=== PATIENT | female | born 1935 | race Caucasian/White ===

== ENCOUNTER 2017-07-24 16:10 | Inpatient (IN) | payer MEDICARE, OTHER ==
[2017-07-24 16:39] LABS: CHLORIDE,CL 100 mEq/L (98-106); SODIUM,NA 138 mEq/L (136-145)
[2017-07-24] MEDS ORDERED: Denosumab 60 MG/1 ML Syringe SUBCUT SCH (18:06)
--- NOTE | 2017-07-24 18:11 | EDM.PDOC ---
ED HPI GENERAL MEDICAL PROBLEM - General Chief Complaint: General Stated Complaint: fall Time Seen by Provider: 07/24/17 16:26 Source of Information: Reports: Patient, EMS Notes Reviewed History Limitations: Reports: Altered Mental Status - History of Present Illness INITIAL COMMENTS - FREE TEXT/NARRATIVE: Lydia is a 81 yo female who presents to the ER via [facility] after being found in her bathroom on the floor by her neighbors. She suffers from moderate to severe dementia and doesn't recall falling. Neighbors noticed today that she had groceries outside and thought it was odd and decided to go in her home and check on her. They found her lying on the floor. Per EMS, who spoke to neighbors , states she appeared to be her normal self with her history of dementia. They states she was lying on the bathroom floor naked, but the shower had not been on and she was incontinent with stool and urine all over the floor. EMS state she knew her date of , where she was at, full name; however, couldn't remember why she fell or was on the floor. She admitted to falling yesterday as well by her entrance d/t some snow and icy conditions. She denies any discomfort presently. States she is feeling fine. Doesn't recall her last meal but told EMS she had cereal this morning. Neighbors state she must have went sometime today to get groceries as they didn't notice them earlier by her door. Onset: Unknown/Unsure - Related Data Allergies Allergy/AdvReac Type Severity Reaction Status Date / Time No Known Allergies Allergy Verified 07/24/17 16:09 Home Meds: Home Meds Lisinopril/Hydrochlorothiazide [Lisinopril-Hctz 20-12.5 mg Tab] 1 tab PO DAILY 10/21/14 [History] Metoprolol Succinate [Toprol XL] 25 mg PO DAILY 10/21/14 [History] Simvastatin [Zocor] 80 mg PO DAILY 10/21/14 [History] Aspirin [Low Dose Aspirin EC] 81 mg PO DAILY 07/24/17 [History] Calcium Carbonate [Calcium] 1 tab PO DAILY 07/24/17 [History] Denosumab [Prolia] 60 mg SUBCUT Q180D 07/24/17 [History] Potassium Chloride 10 meq PO DAILY 07/24/17 [History] Past Medical History Cardiovascular History: Reports: High Cholesterol, Hypertension Musculoskeletal History: Reports: Arthritis, Osteoporosis Psychiatric History: Reports: Dementia - Past Surgical History HEENT Surgical History: Reports: Cataract Surgery Social & Family History - Tobacco Use Smoking Status *Q: Never Smoker - Recreational Drug Use Recreational Drug Use: No ED ROS GENERAL - Review of Systems Review Of Systems: See Below Constitutional: Reports: Weakness. Denies: Fever, Chills, Decreased Appetite HEENT: Reports: No Symptoms Respiratory: Reports: No Symptoms. Denies: Shortness of Breath, Cough Cardiovascular: Reports: No Symptoms, Blood Pressure Problem, Syncope. Denies: Chest Pain, Edema, Palpitations Endocrine: Reports: No Symptoms GI/Abdominal: Reports: Stool Incontinence : Reports: No Symptoms. Denies: Dysuria, Frequency, Hematuria, Incontinence Musculoskeletal: Reports: No Symptoms Skin: Reports: No Symptoms Neurological: Reports: Dizziness (chronic), Syncope, Weakness Psychiatric: Reports: No Symptoms ED EXAM, GENERAL - Physical Exam Exam: See Below Exam Limited By: Altered Mental Status General Appearance: Alert, No Apparent Distress Eye Exam: Bilateral Eye: EOMI, Normal Inspection, PERRL Ears: Normal External Exam, Hearing Grossly Normal, Normal TMs Nose: Normal Inspection, No Blood Throat/Mouth: Normal Inspection, Normal Lips, Normal Teeth, Normal Gums, Normal Oropharynx, No Airway Compromise Head: Atraumatic, Normocephalic Neck: Normal Inspection, Supple Respiratory/Chest: No Respiratory Distress, Lungs Clear, Normal Breath Sounds, No Accessory Muscle Use Cardiovascular: Regular Rate, Rhythm, No Edema, No Murmur GI/Abdominal: Normal Bowel Sounds, Soft, Non-Tender, No Organomegaly Neurological: Alert, Confused, Memory Loss Recent Events. No: Disoriented Psychiatric: Normal Affect, Normal Mood Skin Exam: Warm, Dry, Intact, Normal Color, No Rash. No: Ecchymosis EKG INTERPRETATION EKG Date: 07/24/17 Rhythm: NSR Comparison: NA - No Prior EKG Course - Vital Signs Last Recorded V/S: Last Vital Signs Temp 96.1 F 07/24/17 16:13 Pulse 78 07/24/17 16:13 Resp 20 07/24/17 16:13 BP 173/80 H 07/24/17 16:13 Pulse Ox 98 07/24/17 16:13 - Orders/Labs/Meds Orders: Active Orders 24 hr Category Date Time Status Head wo Cont [CT] Stat Exams 07/24/17 16:22 Ordered UA W/MICROSCOPIC [URIN] Stat Lab 07/24/17 16:22 Ordered Labs: Laboratory Tests 07/24/17 07/24/17 Range/Units 16:32 16:32 WBC 12.1 H (5.0-10.0) 10^3/uL RBC 4.79 (4.00-5.50) 10^6/uL Hgb 15.4 (12.0-16.0) g/dL Hct 44.5 (37.0-47.0) % MCV 92.9 (82.0-94.0) fL MCH 32.2 H (27.0-32.0) pg MCHC 34.6 (33.0-38.0) g/dL RDW Coeff of Danni 13.1 (11.0-15.0) % Plt Count 187 (150-400) 10^3/uL Neut % (Auto) 87.1 H (35-85) % Lymph % (Auto) 5.3 L (10-55) % [place] % (Auto) 7.5 (0-16) % Eos % (Auto) 0 (0-5) % Baso % (Auto) 0.1 (0-3) % Neut # (Auto) 10.55 H (1.80-7.00) 10^3/uL Lymph # (Auto) 0.64 L (1.00-4.80) 10^3/uL [place] # (Auto) 0.91 H (0.00-0.80) 10^3/uL Eos # (Auto) 0.00 (0.00-0.45) 10^3/uL Baso # (Auto) 0.01 10^3/uL Sodium 138 (136-145) mEq/L Potassium 3.3 L (3.5-5.0) mEq/L Chloride 100 (98-106) mEq/L Carbon Dioxide 27 (21-32) mmol/L BUN 13 (7-18) mg/dL Creatinine 0.6 (0.6-1.0) mg/dL Est Cr Clr Drug Dosing 71.17 mL/min Estimated GFR (MDRD) > 60 (>=60) mL/min Glucose 140 H D (75-99) mg/dL Calcium 8.4 (8.4-10.1) mg/dL Creatine Kinase 1415 H (21-215) U/L Troponin I < 0.017 (0.00-0.06) ng/mL C-Reactive Protein 2.8 H (0.2-0.8) mg/dL Departure - Departure Time of Disposition: 17:30 Disposition: Admitted As Inpatient 68 Clinical Impression: Confusion Syncope Qualifiers: Syncope type: unspecified Qualified Code(s): R55 - Syncope and collapse Incontinence Qualifiers: Urinary Incontinence type: unspecified incontinence - Discharge Information - Problem List & Annotations (1) Confusion SNOMED Code(s): 094751701 Code(s): R41.0 - DISORIENTATION, UNSPECIFIED Status: Acute Current Visit : Yes (2) Incontinence SNOMED Code(s): 62185676 Code(s): R32 - UNSPECIFIED URINARY INCONTINENCE Status: Acute Current Visit: Yes Qualifiers: Urinary Incontinence type: unspecified incontinence (3) Syncope SNOMED Code(s): 929031790 Code(s): R55 - SYNCOPE AND COLLAPSE Status: Acute Current Visit: Yes Qualifiers: Syncope type: unspecified Qualified Code(s): R55 - Syncope and collapse - My Orders Last 24 Hours: My Active Orders 07/24/17 16:22 Head wo Cont [CT] Stat UA W/MICROSCOPIC [URIN] Stat - Assessment/Plan Admission H&P: Please use this note as an admission H&P Last 24 Hours: My Active Orders 07/24/17 16:22 Head wo Cont [CT] Stat UA W/MICROSCOPIC [URIN] Stat Plan: Lydia will be directly admitted to Dr. Garcia's services under acute care. Dr. Garcia consulted and agreed with admission. I am concerned of her well being at home alone and we will closely monitor. PT will be ordered for strengthening as well. IV fluids as her CK level was elevated to 1400. Discussed antibiotic therapy with Dr. Garcia secondary to increased confusion, mildly elevated WBC and CRP, incontinence. Will give a dose of Rocephin as we are waiting on urinalysis and culture. Patient has been transferred to the floor and is sitting up eating. Does not appear to be in any distress.
[2017-07-24] MEDS: cefTRIAXone 1 GM Vial IVPUSH SCH (18:55)
[2017-07-24] MEDS: Sodium Chloride 0.9% 1,000 ML IV SCH (18:55)
[2017-07-24] MEDS: Enoxaparin 30 MG/0.3 ML Syringe SUBCUT SCH (20:07)
[2017-07-25] MEDS: Acetaminophen 325 MG Tab PO PRN ×2 (00:13→16:40)
[2017-07-25] MEDS: Sodium Chloride 0.9% 1,000 ML IV SCH ×2 (01:45→11:37)
[2017-07-25 07:56] LABS: CHLORIDE,CL 107 mEq/L (98-106); SODIUM,NA 143 mEq/L (136-145)
[2017-07-25] MEDS: Calcium Carbonate 500 MG Tab.Chew PO SCH (08:09)
[2017-07-25] MEDS: Hydrochlorothiazide 12.5 MG Cap PO SCH (08:10)
[2017-07-25] MEDS: Potassium Chloride 10 MEQ Tab.ER PO SCH (08:10)
[2017-07-25] MEDS: Metoprolol Succinate 25 MG Tab.ER PO SCH (08:10)
[2017-07-25] MEDS: Simvastatin 40 MG Tab PO SCH (08:13)
[2017-07-25] MEDS: Aspirin 81 MG Tab.EC PO SCH (08:13)
[2017-07-25] MEDS: Lisinopril 20 MG Tab PO SCH (08:14)
--- NOTE | 2017-07-25 09:29 | PCM.PN ---
- General Info Date of Service: 07/25/17 Admission Dx/Problem (Free Text): Syncope Functional Status: Reports: Pain Controlled, Tolerating Diet, Ambulating - Review of Systems General: Denies: Fever, Weakness, Fatigue HEENT: Denies: Ear Pain, Sinus Congestion, Sore Throat, Rhinitis Pulmonary: Denies: Shortness of Breath, Cough, Sputum Cardiovascular: Denies: Chest Pain, Edema, Lightheadedness Gastrointestinal: Denies: Abdominal Pain, Decreased Appetite, Nausea, Vomiting Genitourinary: Reports: No Symptoms Musculoskeletal: Reports: Joint Pain (left knee pain) Skin: Reports: Other ("sore left knee") Neurological: Reports: No Symptoms - Patient Data Vitals - Most Recent: Last Vital Signs Temp 98.9 F 07/25/17 07:35 Pulse 70 07/25/17 08:10 Resp 20 07/25/17 07:35 BP 157/73 H 07/25/17 08:14 Pulse Ox 98 07/25/17 07:35 Weight - Most Recent: 157 lb 8 oz I&O - Last 24 Hours: Intake & Output 07/24/17 07/25/17 07/25/17 22:59 06:59 14:59 Intake Total 854 952 Balance 854 952 Lab Results Last 24 Hours: Laboratory Results - last 24 hr 07/24/17 07/25/17 07/25/17 Range/Units 18:35 07:00 07:00 WBC 10.7 H (5.0-10.0) 10^3/uL RBC 4.61 (4.00-5.50) 10^6/uL Hgb 14.9 (12.0-16.0) g/dL Hct 43.6 (37.0-47.0) % MCV 94.6 H (82.0-94.0) fL MCH 32.3 H (27.0-32.0) pg MCHC 34.2 (33.0-38.0) g/dL RDW Coeff of Danni 13.7 (11.0-15.0) % Plt Count 210 (150-400) 10^3/uL Neut % (Auto) 70.6 (35-85) % Lymph % (Auto) 18.0 (10-55) % [place] % (Auto) 10.9 (0-16) % Eos % (Auto) 0.4 (0-5) % Baso % (Auto) 0.1 (0-3) % Neut # (Auto) 7.54 H (1.80-7.00) 10^3/uL Lymph # (Auto) 1.92 (1.00-4.80) 10^3/uL [place] # (Auto) 1.16 H (0.00-0.80) 10^3/uL Eos # (Auto) 0.04 (0.00-0.45) 10^3/uL Baso # (Auto) 0.01 10^3/uL Sodium 143 (136-145) mEq/L Potassium 3.3 L (3.5-5.0) mEq/L Chloride 107 H (98-106) mEq/L Carbon Dioxide 27 (21-32) mmol/L BUN 12 (7-18) mg/dL Creatinine 0.8 (0.6-1.0) mg/dL Est Cr Clr Drug Dosing 53.38 mL/min Estimated GFR (MDRD) > 60 (>=60) mL/min Glucose 113 H (75-99) mg/dL Calcium 7.9 L (8.4-10.1) mg/dL Creatine Kinase 1306 H (21-215) U/L C-Reactive Protein 5.5 H (0.2-0.8) mg/dL Urine Color Yellow (YELLOW) Urine Appearance Clear (CLEAR) Urine pH 7.0 (4.5-8.0) Ur Specific [place] 1.025 H (1.003-1.020) Urine Protein 100 H (NEGATIVE) mg/dL Urine Glucose (UA) Negative (NEGATIVE) mg/dL Urine Ketones 80 H (NEGATIVE) mg/dL Urine Occult Blood Moderate H (NEGATIVE) Urine Nitrite Negative (NEGATIVE) Urine Bilirubin Negative (NEGATIVE) Urine Urobilinogen 0.2 (0.2-1.0) EU/dL Ur Leukocyte Esterase Negative (NEGATIVE) Urine RBC 10-20 H (0-5) /HPF Urine WBC Not seen (0-5) /HPF Ur Squamous Epith Cells Few H (NOT SEEN) /HPF Urine Bacteria Occasional H (NOT SEEN) /HPF Urine Mucus Occasional H (NOT SEEN) /HPF Dony Results Last 24 Hours: Microbiology 07/24/17 18:41 Urine Culture - Preliminary Urine, Voided Med Orders - Current: Current Medications Acetaminophen (Tylenol) 650 mg PO Q4H PRN PRN Reason: Pain (Mild 1-3)/fever Last Admin: 07/25/17 00:13 Dose: 650 mg Aspirin (Halfprin) 81 mg PO DAILY [facility] Last Admin: 07/25/17 08:13 Dose: 81 mg Calcium Carbonate/Glycine (Tums) 500 mg PO DAILY [facility] Last Admin: 07/25/17 08:09 Dose: 500 mg Ceftriaxone Sodium (Rocephin) 1 gm IVPUSH Q24H [facility] Last Admin: 07/24/17 18:55 Dose: 1 gm Enoxaparin Sodium (Lovenox) 30 mg SUBCUT Q24H [facility] Last Admin: 07/24/17 20:07 Dose: 30 mg Hydrochlorothiazide (Hydrochlorothiazide) 12.5 mg PO DAILY [facility] Last Admin: 07/25/17 08:10 Dose: 12.5 mg Sodium Chloride (Normal Saline) 1,000 mls @ 50 mls/hr IV ASDIRECTED [facility] Last Infusion: 07/25/17 09:22 Dose: 50 mls/hr Lisinopril (Prinivil) 20 mg PO DAILY [facility] Last Admin: 07/25/17 08:14 Dose: 20 mg Metoprolol Succinate (Toprol Xl) 25 mg PO DAILY [facility] Last Admin: 07/25/17 08:10 Dose: 25 mg Potassium Chloride (Klor-Con 10) 10 meq PO DAILY [facility] Last Admin: 07/25/17 08:10 Dose: 10 meq Simvastatin (Zocor) 80 mg PO DAILY [facility] Last Admin: 07/25/17 08:13 Dose: 80 mg Discontinued Medications Denosumab (Prolia) 60 mg SUBCUT Q180D [facility] Last Admin: 07/24/17 20:23 Dose: Not Given - Exam General: Alert, Oriented HEENT: Mucous Membr. Moist/[place] Neck: Supple Lungs: Clear to Auscultation, Normal Respiratory Effort Cardiovascular: Regular Rate, Regular Rhythm GI/Abdominal Exam: Normal Bowel Sounds, Soft, Non-Tender Extremities: Normal Range of Motion, Non-Tender, Other (bruising and abrasion noted to left knee, nontender.) Skin: Ecchymosis Wound/Incisions: No Drainage Neurological: No New Focal Deficit - Problem List & Annotations (1) Confusion SNOMED Code(s): 840204228 Code(s): R41.0 - DISORIENTATION, UNSPECIFIED Status: Acute Priority: High Current Visit: Yes (2) Syncope SNOMED Code(s): 330709942 Code(s): R55 - SYNCOPE AND COLLAPSE Status: Acute Priority: High Current Visit: Yes Qualifiers: Syncope type: unspecified Qualified Code(s): R55 - Syncope and collapse - Problem List Review Problem List Initiated/Reviewed/Updated: Yes - My Orders Last 24 Hours: My Active Orders 07/25/17 09:05 Consult to Physical Therapy [PT Evaluation and Treatment] [CONS] Routine - Assessment Assessment:: Syncope - Plan Plan:: Patient denies any complaints this am. No dizziness, chest pain or shortness of breath. She denies muscle pain or discomfort to the left knee. She does not recall the events of yesterday that led to the syncopal episode except was trying to "carry too much in the house". She does not recall lying in the bathroom or what happened regarding that. Was found by friends. She does have issues with short term memory deficit chronically but no recall of the events of yesterday. Does not recall having any abdominal pain, not aware of being incontinent of bowel or bladder. Will reduce IV fluids to 50 ml/hr. PT for ambulation/balance. Social service consult regarding home safety. Discussion held with patient with concerns of this and questionable placement at assisted living. Is worried about leaving her home and the cost related to this. Inappropriate for discharge at this time.
[2017-07-25] MEDS: cefTRIAXone 1 GM Vial IVPUSH SCH (17:32)
[2017-07-25] MEDS: Enoxaparin 30 MG/0.3 ML Syringe SUBCUT SCH (19:31)
[2017-07-26] MEDS: Metoprolol Succinate 25 MG Tab.ER PO SCH (07:59)
[2017-07-26] MEDS: Potassium Chloride 10 MEQ Tab.ER PO SCH (08:00)
[2017-07-26] MEDS: Simvastatin 40 MG Tab PO SCH (08:00)
[2017-07-26] MEDS: Calcium Carbonate 500 MG Tab.Chew PO SCH (08:01)
[2017-07-26] MEDS: Aspirin 81 MG Tab.EC PO SCH (08:01)
[2017-07-26] MEDS: Hydrochlorothiazide 12.5 MG Cap PO SCH (08:01)
[2017-07-26] MEDS: Lisinopril 20 MG Tab PO SCH (08:02)
--- NOTE | 2017-07-26 13:08 | PCM.PN ---
- General Info Date of Service: 07/26/17 Admission Dx/Problem (Free Text): Syncope Functional Status: Reports: Pain Controlled, Tolerating Diet, Ambulating - Review of Systems General: Denies: Fever, Weakness, Fatigue HEENT: Reports: No Symptoms Pulmonary: Reports: No Symptoms Cardiovascular: Reports: No Symptoms Gastrointestinal: Reports: No Symptoms Musculoskeletal: Reports: Joint Pain Neurological: Reports: Confusion, Pre-Existing Deficit - Patient Data Vitals - Most Recent: Last Vital Signs Temp 99.0 F 07/26/17 11:48 Pulse 78 07/26/17 11:48 Resp 20 07/26/17 11:48 BP 142/70 H 07/26/17 11:48 Pulse Ox 98 07/26/17 11:48 Weight - Most Recent: 157 lb 8 oz Dony Results Last 24 Hours: Microbiology 07/24/17 18:41 Urine Culture - Final Urine, Voided Med Orders - Current: Current Medications Acetaminophen (Tylenol) 650 mg PO Q4H PRN PRN Reason: Pain (Mild 1-3)/fever Last Admin: 07/25/17 16:40 Dose: 650 mg Aspirin (Halfprin) 81 mg PO DAILY [facility] Last Admin: 07/26/17 08:01 Dose: 81 mg Calcium Carbonate/Glycine (Tums) 500 mg PO DAILY [facility] Last Admin: 07/26/17 08:01 Dose: 500 mg Ceftriaxone Sodium (Rocephin) 1 gm IVPUSH Q24H [facility] Last Admin: 07/25/17 17:32 Dose: 1 gm Enoxaparin Sodium (Lovenox) 30 mg SUBCUT Q24H [facility] Last Admin: 07/25/17 19:31 Dose: 30 mg Hydrochlorothiazide (Hydrochlorothiazide) 12.5 mg PO DAILY [facility] Last Admin: 07/26/17 08:01 Dose: 12.5 mg Lisinopril (Prinivil) 20 mg PO DAILY [facility] Last Admin: 07/26/17 08:02 Dose: 20 mg Metoprolol Succinate (Toprol Xl) 25 mg PO DAILY [facility] Last Admin: 07/26/17 07:59 Dose: 25 mg Potassium Chloride (Klor-Con 10) 10 meq PO DAILY [facility] Last Admin: 07/26/17 08:00 Dose: 10 meq Simvastatin (Zocor) 80 mg PO DAILY [facility] Last Admin: 07/26/17 08:00 Dose: 80 mg Discontinued Medications Denosumab (Prolia) 60 mg SUBCUT Q180D [facility] Last Admin: 07/24/17 20:23 Dose: Not Given Sodium Chloride (Normal Saline) 1,000 mls @ 50 mls/hr IV ASDIRECTED [facility] Last Admin: 07/25/17 11:37 Dose: 50 mls/hr - Exam General: Alert, Oriented HEENT: Mucous Membr. Moist/[place] Neck: Supple Lungs: Clear to Auscultation, Normal Respiratory Effort Cardiovascular: Regular Rate, Regular Rhythm GI/Abdominal Exam: Normal Bowel Sounds, Soft, Non-Tender Skin: Warm, Dry Psy/Mental Status: Other (reported confusion much worse last evening, had to be redirected multiple times.) - Problem List & Annotations (1) Confusion SNOMED Code(s): 797413185 Code(s): R41.0 - DISORIENTATION, UNSPECIFIED Status: Acute Priority: High Current Visit: Yes (2) Syncope SNOMED Code(s): 764618145 Code(s): R55 - SYNCOPE AND COLLAPSE Status: Acute Priority: High Current Visit: Yes Qualifiers: Syncope type: unspecified Qualified Code(s): R55 - Syncope and collapse - Problem List Review Problem List Initiated/Reviewed/Updated: Yes - My Orders Last 24 Hours: My Active Orders 07/26/17 08:26 Carotid Comp [US] Routine Echo Comp wo Cont [US] Routine - Assessment Assessment:: Syncope - Plan Plan:: Patient denies any complaints this am. No dizziness, chest pain or shortness of breath. She denies muscle pain or discomfort to the left knee. She does not recall the events of yesterday that led to the syncopal episode except was trying to "carry too much in the house". She does not recall lying in the bathroom or what happened regarding that. Was found by friends. She does have issues with short term memory deficit chronically but no recall of the events of yesterday. Does not recall having any abdominal pain, not aware of being incontinent of bowel or bladder. Will reduce IV fluids to 50 ml/hr. PT for ambulation/balance. Social service consult regarding home safety. Discussion held with patient with concerns of this and questionable placement at assisted living. Is worried about leaving her home and the cost related to this. Inappropriate for discharge at this time. 07-26-2017 Patient continues to have no recall of the events of Saturday. She relates she laid outside overnight and got very cold. Was actually found lying in her bathroom with no clothing on, incontinent of both bowel and bladder. Normal body temperature. Patient does have history of dementia, short term memory concerns or poor recall. Concerns voiced with patient about her home safety due to confusion, falls. Will obtain an echocardiogram and carotid ultrasound today due to questionable syncopal episode. director of residential services to contact sister about potential placement due to safety. Possible transfer to swing bed tomorrow until those plans can be finalized.
[2017-07-26] MEDS: cefTRIAXone 1 GM Vial IVPUSH SCH (17:31)
[2017-07-26] MEDS: Enoxaparin 30 MG/0.3 ML Syringe SUBCUT SCH (20:14)
[2017-07-27 07:37] LABS: CHLORIDE,CL 106 mEq/L (98-106); SODIUM,NA 142 mEq/L (136-145)
[2017-07-27] MEDS ORDERED: Tuberculin, PPD 5 Units/0.1 ML 1 ML MDV IDERM ONE (08:00)
[2017-07-27] MEDS: Lisinopril 20 MG Tab PO SCH (08:22)
[2017-07-27] MEDS: Simvastatin 40 MG Tab PO SCH (08:22)
[2017-07-27] MEDS: Calcium Carbonate 500 MG Tab.Chew PO SCH (08:22)
[2017-07-27] MEDS: Hydrochlorothiazide 12.5 MG Cap PO SCH (08:23)
[2017-07-27] MEDS: Potassium Chloride 10 MEQ Tab.ER PO SCH (08:23)
[2017-07-27] MEDS: Aspirin 81 MG Tab.EC PO SCH (08:23)
[2017-07-27] MEDS: Metoprolol Succinate 25 MG Tab.ER PO SCH (08:23)
--- NOTE | 2017-07-27 13:55 | PCM.PN ---
- General Info Date of Service: 07/27/17 Admission Dx/Problem (Free Text): Syncope Subjective Update: Lydia reports she is feeling well this morning. She does not have any complaints at time of rounds. Functional Status: Reports: Pain Controlled, Tolerating Diet, Ambulating, Urinating. Denies: New Symptoms - Patient Data Vitals - Most Recent: Last Vital Signs Temp 97.5 F 07/27/17 07:45 Pulse 68 07/27/17 08:23 Resp 20 07/27/17 07:45 BP 147/83 H 07/27/17 08:23 Pulse Ox 99 07/27/17 07:45 Weight - Most Recent: 157 lb 8 oz Lab Results Last 24 Hours: Laboratory Results - last 24 hr 07/27/17 Range/Units 07:00 Sodium 142 (136-145) mEq/L Potassium 4.3 D (3.5-5.0) mEq/L Chloride 106 (98-106) mEq/L Carbon Dioxide 30 (21-32) mmol/L BUN 12 (7-18) mg/dL Creatinine 0.6 (0.6-1.0) mg/dL Est Cr Clr Drug Dosing 71.17 mL/min Estimated GFR (MDRD) > 60 (>=60) mL/min Glucose 130 H (75-99) mg/dL Calcium 8.6 (8.4-10.1) mg/dL Creatine Kinase 487 H (21-215) U/L C-Reactive Protein 3.0 H (0.2-0.8) mg/dL Dony Results Last 24 Hours: Microbiology 07/24/17 18:41 Urine Culture - Final Urine, Voided Med Orders - Current: Current Medications Acetaminophen (Tylenol) 650 mg PO Q4H PRN PRN Reason: Pain (Mild 1-3)/fever Last Admin: 07/25/17 16:40 Dose: 650 mg Aspirin (Halfprin) 81 mg PO DAILY [facility] Last Admin: 07/27/17 08:23 Dose: 81 mg Calcium Carbonate/Glycine (Tums) 500 mg PO DAILY [facility] Last Admin: 07/27/17 08:22 Dose: 500 mg Ceftriaxone Sodium (Rocephin) 1 gm IVPUSH Q24H [facility] Last Admin: 07/26/17 17:31 Dose: 1 gm Enoxaparin Sodium (Lovenox) 30 mg SUBCUT Q24H [facility] Last Admin: 07/26/17 20:14 Dose: 30 mg Hydrochlorothiazide (Hydrochlorothiazide) 12.5 mg PO DAILY [facility] Last Admin: 07/27/17 08:23 Dose: 12.5 mg Lisinopril (Prinivil) 20 mg PO DAILY [facility] Last Admin: 07/27/17 08:22 Dose: 20 mg Metoprolol Succinate (Toprol Xl) 25 mg PO DAILY [facility] Last Admin: 07/27/17 08:23 Dose: 25 mg Potassium Chloride (Klor-Con 10) 10 meq PO DAILY [facility] Last Admin: 07/27/17 08:23 Dose: 10 meq Simvastatin (Zocor) 80 mg PO DAILY [facility] Last Admin: 07/27/17 08:22 Dose: 80 mg Discontinued Medications Denosumab (Prolia) 60 mg SUBCUT Q180D [facility] Last Admin: 07/24/17 20:23 Dose: Not Given Sodium Chloride (Normal Saline) 1,000 mls @ 50 mls/hr IV ASDIRECTED [facility] Last Admin: 07/25/17 11:37 Dose: 50 mls/hr Tuberculin PPD (Aplisol) 5 unit IDERM ONETIME ONE Stop: 07/27/17 08:01 Last Admin: 07/27/17 08:20 Dose: 5 unit - Exam General: Alert, Other (oriented to person, disoriented to time and situation) HEENT: Pupils Equal, Pupils Reactive, EOMI, Mucous Membr. Moist/[place] Neck: Supple Lungs: Clear to Auscultation, Normal Respiratory Effort Cardiovascular: Regular Rate, Regular Rhythm Neurological: No New Focal Deficit Psy/Mental Status: Alert, Normal Affect, Normal Mood - Problem List & Annotations (1) Dementia SNOMED Code(s): 22973906 Code(s): F03.90 - UNSPECIFIED DEMENTIA WITHOUT BEHAVIORAL DISTURBANCE Status: Chronic Current Visit: Yes Qualifiers: Dementia type: unspecified type Dementia behavioral disturbance: without behavioral disturbance Qualified Code(s): F03.90 - Unspecified dementia without behavioral disturbance (2) Confusion SNOMED Code(s): 104507053 Code(s): R41.0 - DISORIENTATION, UNSPECIFIED Status: Acute Priority: High Current Visit: Yes (3) Syncope SNOMED Code(s): 089284360 Code(s): R55 - SYNCOPE AND COLLAPSE Status: Acute Priority: High Current Visit: Yes Qualifiers: Syncope type: unspecified Qualified Code(s): R55 - Syncope and collapse - Problem List Review Problem List Initiated/Reviewed/Updated: Yes - My Orders Last 24 Hours: My Active Orders 07/28/17 06:00 BASIC METABOLIC PANEL,BMP [CHEM] DAILY C-REACTIVE PROTEIN [CHEM] DAILY CBC WITH AUTO DIFF [HEME] DAILY CREATINE KINASE,CK [CHEM] DAILY 07/29/17 06:00 CBC WITH AUTO DIFF [HEME] DAILY CREATINE KINASE,CK [CHEM] DAILY 07/30/17 06:00 CBC WITH AUTO DIFF [HEME] DAILY - Assessment Assessment:: Syncope - Plan Plan:: Patient denies any complaints this am. No dizziness, chest pain or shortness of breath. She denies muscle pain or discomfort to the left knee. She does not recall the events of yesterday that led to the syncopal episode except was trying to "carry too much in the house". She does not recall lying in the bathroom or what happened regarding that. Was found by friends. She does have issues with short term memory deficit chronically but no recall of the events of yesterday. Does not recall having any abdominal pain, not aware of being incontinent of bowel or bladder. Will reduce IV fluids to 50 ml/hr. PT for ambulation/balance. Social service consult regarding home safety. Discussion held with patient with concerns of this and questionable placement at assisted living. Is worried about leaving her home and the cost related to this. Inappropriate for discharge at this time. 07-26-2017 Patient continues to have no recall of the events of Saturday. She relates she laid outside overnight and got very cold. Was actually found lying in her bathroom with no clothing on, incontinent of both bowel and bladder. Normal body temperature. Patient does have history of dementia, short term memory concerns or poor recall. Concerns voiced with patient about her home safety due to confusion, falls. Will obtain an echocardiogram and carotid ultrasound today due to questionable syncopal episode. director of employer services to contact sister about potential placement due to safety. Possible transfer to swing bed tomorrow until those plans can be finalized. 07-27-2017 Patient continues to be pleasant confused. She is resting comfortably in her chair at time of rounds. Continues to have no recollection of events leading up to admission. Discussed with patient that for her safety she will be going to [facility] on Saturday. She will remain in hospital until then. She continues to raise many safety concerns due to confusion and falls. Echo and carotid US pending.
[2017-07-27] MEDS: cefTRIAXone 1 GM Vial IVPUSH SCH (19:29)
[2017-07-27] MEDS: Enoxaparin 30 MG/0.3 ML Syringe SUBCUT SCH (19:29)
[2017-07-28 07:35] LABS: CHLORIDE,CL 106 mEq/L (98-106); SODIUM,NA 143 mEq/L (136-145)
[2017-07-28] MEDS: Simvastatin 40 MG Tab PO SCH (07:57)
[2017-07-28] MEDS: Calcium Carbonate 500 MG Tab.Chew PO SCH (07:57)
[2017-07-28] MEDS: Hydrochlorothiazide 12.5 MG Cap PO SCH (07:59)
[2017-07-28] MEDS: Lisinopril 20 MG Tab PO SCH (07:59)
[2017-07-28] MEDS: Metoprolol Succinate 25 MG Tab.ER PO SCH (07:59)
[2017-07-28] MEDS: Aspirin 81 MG Tab.EC PO SCH (07:59)
[2017-07-28] MEDS: Potassium Chloride 10 MEQ Tab.ER PO SCH (07:59)
--- NOTE | 2017-07-28 11:33 | PCM.PN ---
- General Info Date of Service: 07/28/17 Admission Dx/Problem (Free Text): Syncope Subjective Update: Lydia reports she is feeling well this morning. She does not have any complaints at time of rounds. Functional Status: Reports: Pain Controlled, Tolerating Diet, Ambulating, Urinating. Denies: New Symptoms - Review of Systems General: Reports: Weakness HEENT: Reports: No Symptoms Pulmonary: Reports: No Symptoms Cardiovascular: Reports: No Symptoms Gastrointestinal: Reports: No Symptoms Genitourinary: Reports: No Symptoms Musculoskeletal: Reports: No Symptoms Skin: Reports: No Symptoms Neurological: Reports: Confusion Psychiatric: Reports: Confusion - Patient Data Vitals - Most Recent: Last Vital Signs Temp 98.4 F 07/28/17 07:45 Pulse 63 07/28/17 07:59 Resp 16 07/28/17 07:45 BP 138/66 07/28/17 07:59 Pulse Ox 98 07/28/17 07:45 Weight - Most Recent: 157 lb 8 oz Lab Results Last 24 Hours: Laboratory Results - last 24 hr 07/28/17 07/28/17 Range/Units 07:05 07:05 WBC 5.4 (5.0-10.0) 10^3/uL RBC 4.15 (4.00-5.50) 10^6/uL Hgb 13.4 (12.0-16.0) g/dL Hct 39.9 (37.0-47.0) % MCV 96.1 H (82.0-94.0) fL MCH 32.3 H (27.0-32.0) pg MCHC 33.6 (33.0-38.0) g/dL RDW Coeff of Danni 13.5 (11.0-15.0) % Plt Count 186 (150-400) 10^3/uL Neut % (Auto) 49.3 (35-85) % Lymph % (Auto) 35.4 (10-55) % [place] % (Auto) 12.7 (0-16) % Eos % (Auto) 2.2 (0-5) % Baso % (Auto) 0.4 (0-3) % Neut # (Auto) 2.64 (1.80-7.00) 10^3/uL Lymph # (Auto) 1.90 (1.00-4.80) 10^3/uL [place] # (Auto) 0.68 (0.00-0.80) 10^3/uL Eos # (Auto) 0.12 (0.00-0.45) 10^3/uL Baso # (Auto) 0.02 10^3/uL Sodium 143 (136-145) mEq/L Potassium 3.9 (3.5-5.0) mEq/L Chloride 106 (98-106) mEq/L Carbon Dioxide 29 (21-32) mmol/L BUN 14 (7-18) mg/dL Creatinine 0.6 (0.6-1.0) mg/dL Est Cr Clr Drug Dosing 71.17 mL/min Estimated GFR (MDRD) > 60 (>=60) mL/min Glucose 116 H (75-99) mg/dL Calcium 8.7 (8.4-10.1) mg/dL Creatine Kinase 302 H (21-215) U/L C-Reactive Protein 3.0 H (0.2-0.8) mg/dL Med Orders - Current: Current Medications Acetaminophen (Tylenol) 650 mg PO Q4H PRN PRN Reason: Pain (Mild 1-3)/fever Last Admin: 07/25/17 16:40 Dose: 650 mg Aspirin (Halfprin) 81 mg PO DAILY [facility] Last Admin: 07/28/17 07:59 Dose: 81 mg Calcium Carbonate/Glycine (Tums) 500 mg PO DAILY [facility] Last Admin: 07/28/17 07:57 Dose: 500 mg Ceftriaxone Sodium (Rocephin) 1 gm IVPUSH Q24H [facility] Last Admin: 07/27/17 19:29 Dose: 1 gm Enoxaparin Sodium (Lovenox) 30 mg SUBCUT Q24H [facility] Last Admin: 07/27/17 19:29 Dose: 30 mg Hydrochlorothiazide (Hydrochlorothiazide) 12.5 mg PO DAILY [facility] Last Admin: 07/28/17 07:59 Dose: 12.5 mg Lisinopril (Prinivil) 20 mg PO DAILY [facility] Last Admin: 07/28/17 07:59 Dose: 20 mg Metoprolol Succinate (Toprol Xl) 25 mg PO DAILY [facility] Last Admin: 07/28/17 07:59 Dose: 25 mg Potassium Chloride (Klor-Con 10) 10 meq PO DAILY [facility] Last Admin: 07/28/17 07:59 Dose: 10 meq Simvastatin (Zocor) 80 mg PO DAILY [facility] Last Admin: 07/28/17 07:57 Dose: 80 mg Discontinued Medications Denosumab (Prolia) 60 mg SUBCUT Q180D [facility] Last Admin: 07/24/17 20:23 Dose: Not Given Sodium Chloride (Normal Saline) 1,000 mls @ 50 mls/hr IV ASDIRECTED [facility] Last Admin: 07/25/17 11:37 Dose: 50 mls/hr Tuberculin PPD (Aplisol) 5 unit IDERM ONETIME ONE Stop: 07/27/17 08:01 Last Admin: 07/27/17 08:20 Dose: 5 unit - Exam General: Alert, No Acute Distress Neck: Supple Lungs: Clear to Auscultation, Normal Respiratory Effort Cardiovascular: Regular Rate, Regular Rhythm GI/Abdominal Exam: Normal Bowel Sounds, Soft, Non-Tender, No Organomegaly, No Distention, No Abnormal Bruit, No Mass, Pelvis Stable Neurological: No New Focal Deficit Psy/Mental Status: Alert, Normal Affect, Normal Mood - Problem List & Annotations (1) Dementia SNOMED Code(s): 47722454 Code(s): F03.90 - UNSPECIFIED DEMENTIA WITHOUT BEHAVIORAL DISTURBANCE Status: Chronic Current Visit: Yes Qualifiers: Dementia type: unspecified type Dementia behavioral disturbance: without behavioral disturbance Qualified Code(s): F03.90 - Unspecified dementia without behavioral disturbance (2) Confusion SNOMED Code(s): 668558593 Code(s): R41.0 - DISORIENTATION, UNSPECIFIED Status: Acute Priority: High Current Visit: Yes (3) Syncope SNOMED Code(s): 343893847 Code(s): R55 - SYNCOPE AND COLLAPSE Status: Acute Priority: High Current Visit: Yes Qualifiers: Syncope type: unspecified Qualified Code(s): R55 - Syncope and collapse - Problem List Review Problem List Initiated/Reviewed/Updated: Yes - My Orders Last 24 Hours: My Active Orders 07/29/17 06:00 CBC WITH AUTO DIFF [HEME] DAILY CREATINE KINASE,CK [CHEM] DAILY 07/30/17 06:00 CBC WITH AUTO DIFF [HEME] DAILY - Assessment Assessment:: Syncope - Plan Plan:: Patient denies any complaints this am. No dizziness, chest pain or shortness of breath. She denies muscle pain or discomfort to the left knee. She does not recall the events of yesterday that led to the syncopal episode except was trying to "carry too much in the house". She does not recall lying in the bathroom or what happened regarding that. Was found by friends. She does have issues with short term memory deficit chronically but no recall of the events of yesterday. Does not recall having any abdominal pain, not aware of being incontinent of bowel or bladder. Will reduce IV fluids to 50 ml/hr. PT for ambulation/balance. Social service consult regarding home safety. Discussion held with patient with concerns of this and questionable placement at assisted living. Is worried about leaving her home and the cost related to this. Inappropriate for discharge at this time. 07-26-2017 Patient continues to have no recall of the events of Saturday. She relates she laid outside overnight and got very cold. Was actually found lying in her bathroom with no clothing on, incontinent of both bowel and bladder. Normal body temperature. Patient does have history of dementia, short term memory concerns or poor recall. Concerns voiced with patient about her home safety due to confusion, falls. Will obtain an echocardiogram and carotid ultrasound today due to questionable syncopal episode. phlebotomy services technician to contact sister about potential placement due to safety. Possible transfer to swing bed tomorrow until those plans can be finalized. 07-27-2017 Patient continues to be pleasant confused. She is resting comfortably in her chair at time of rounds. Continues to have no recollection of events leading up to admission. Discussed with patient that for her safety she will be going to [facility] on Saturday. She will remain in hospital until then. She continues to raise many safety concerns due to confusion and falls. Echo and carotid US pending. 07-28-2017 Patient remains pleasantly confused. Resting comfortably in chair. Has been up ambulating with nursing staff. Carotid US shows < 50% narrowing bilaterally. Echo pending. Patient will be discharged tomorrow to [facility] due to safety concerns due to confusion and falls.
[2017-07-28] MEDS: cefTRIAXone 1 GM Vial IVPUSH SCH (19:33)
[2017-07-28] MEDS: Enoxaparin 30 MG/0.3 ML Syringe SUBCUT SCH (19:34)
[2017-07-29 07:15] VITALS: BP 137/86
[2017-07-29] MEDS: Hydrochlorothiazide 12.5 MG Cap PO SCH (07:37)
[2017-07-29] MEDS: Calcium Carbonate 500 MG Tab.Chew PO SCH (07:37)
[2017-07-29] MEDS: Metoprolol Succinate 25 MG Tab.ER PO SCH (07:37)
[2017-07-29] MEDS: Simvastatin 40 MG Tab PO SCH (07:37)
[2017-07-29] MEDS: Potassium Chloride 10 MEQ Tab.ER PO SCH (07:37)
[2017-07-29] MEDS: Aspirin 81 MG Tab.EC PO SCH (07:37)
[2017-07-29] MEDS: Lisinopril 20 MG Tab PO SCH (07:37)
--- NOTE | 2017-07-29 11:38 | PCM.DCSUM1 ---
Discharge Summary - Hospital Course Free Text/Narrative:: Lydia is a 81 year old female admitted by Harlan Hsu after she was found by neighbors lying on her bathroom floor, incontinent of both urine and stool. Neighbors had noted groceries outside her door, found it odd, so went in to check on her. Found her conscious but lying on the floor naked, incontinent, with shower running. She did not recall falling or how she got there. She was oriented and answering their questions but had no recall of the event. She thought she might have fallen the day before due to icy conditions. Patient does have a history of moderate dementia, has not been able to tolerate any meds for that due to side effects. She was admitted for further neurological work up and concerns with home safety. - Discharge Data Discharge Date: 07/29/17 Discharge Disposition: DC/Tfer to [facility] Condition: Fair - Discharge Diagnosis/Problem(s) (1) Confusion SNOMED Code(s): 298976060 ICD Code: R41.0 - DISORIENTATION, UNSPECIFIED Status: Acute Priority: High (2) Syncope SNOMED Code(s): 586516809 ICD Code: R55 - SYNCOPE AND COLLAPSE Status: Acute Priority: High Qualifiers: Syncope type: unspecified Qualified Code(s): R55 - Syncope and collapse - Patient Summary/Data Complications: none Consults: Consultations 07/25/17 09:05 Consult to Physical Therapy [PT Evaluation and Treatment] [CONS] Routine Hospital Course: Patient hospital stay uneventful. Has been now up and ambulating without concern. No dizziness or lightheadedness. Continues to have no recall of her fall but short term memory is poor. Is oriented to date and time, place but when questioned, does not recall events happening just 30" prior. She denies any chest pain or shortness of breath. Appetite has been good. CK was quite elevated on admit at 1400, now down to 209. Blood pressure has been stable, afebrile. Echocardiogram and carotid ultrasound done during stay due to unknown events of fall. Carotid ultrasound stable, less than 50% narrowing noted. Echocardiogram stable, ejection fraction 65%, mild mitral and tricuspid regurgitation. Family consulted about home safety. Agreed to transfer to the residential due to dementia. - Patient Instructions Diet: Usual Diet as Tolerated Activity: As Tolerated - Discharge Plan Home Medications: Home Meds Lisinopril/Hydrochlorothiazide [Lisinopril-Hctz 20-12.5 mg Tab] 1 tab PO DAILY 10/21/14 [History] Metoprolol Succinate [Toprol XL] 25 mg PO DAILY 10/21/14 [History] Simvastatin [Zocor] 80 mg PO DAILY 10/21/14 [History] Aspirin [Low Dose Aspirin EC] 81 mg PO DAILY 07/24/17 [History] Calcium Carbonate [Calcium] 1 tab PO DAILY 07/24/17 [History] Denosumab [Prolia] 60 mg SUBCUT Q180D 07/24/17 [History] Potassium Chloride 10 meq PO DAILY 07/24/17 [History] Patient Handouts: Syncope Forms: ED Department Discharge Referrals: Lionel Hsu PA-C [Primary Care Provider] - - Discharge Summary/Plan Comment DC Time >30 min.: Yes Discharge Summary/Plan Comment: Transfer to [facility]. Continue all current meds. Time with patient 15 minutes Time for orders 10 minutes time for documentation 10 minutes - General Info Date of Service: 07/29/17 Admission Dx/Problem (Free Text: Syncope Functional Status: Reports: Pain Controlled, Tolerating Diet, Ambulating - Review of Systems General: Denies: Fever HEENT: Reports: No Symptoms Pulmonary: Denies: Shortness of Breath, Cough Cardiovascular: Denies: Chest Pain, Edema, Lightheadedness Gastrointestinal: Denies: Abdominal Pain, Nausea, Vomiting Genitourinary: Reports: No Symptoms Musculoskeletal: Reports: No Symptoms Skin: Reports: Other (abrasion and bruise to left knee) Neurological: Reports: Confusion, Pre-Existing Deficit Psychiatric: Reports: No Symptoms - Patient Data Vitals - Most Recent: Last Vital Signs Temp 98.1 F 07/29/17 07:14 Pulse 77 07/29/17 07:37 Resp 16 07/29/17 07:14 BP 137/86 07/29/17 07:37 Pulse Ox 99 07/29/17 07:14 Weight - Most Recent: 157 lb 8 oz Lab Results - Last 24 hrs: Laboratory Results - last 24 hr 07/29/17 07/29/17 Range/Units 06:00 07:15 WBC 5.5 (5.0-10.0) 10^3/uL RBC 4.15 (4.00-5.50) 10^6/uL Hgb 13.3 (12.0-16.0) g/dL Hct 39.8 (37.0-47.0) % MCV 95.9 H (82.0-94.0) fL MCH 32.0 (27.0-32.0) pg MCHC 33.4 (33.0-38.0) g/dL RDW Coeff of Danni 13.4 (11.0-15.0) % Plt Count 193 (150-400) 10^3/uL Neut % (Auto) 48.1 (35-85) % Lymph % (Auto) 34.2 (10-55) % [place] % (Auto) 14.2 (0-16) % Eos % (Auto) 3.1 (0-5) % Baso % (Auto) 0.4 (0-3) % Neut # (Auto) 2.64 (1.80-7.00) 10^3/uL Lymph # (Auto) 1.88 (1.00-4.80) 10^3/uL [place] # (Auto) 0.78 (0.00-0.80) 10^3/uL Eos # (Auto) 0.17 (0.00-0.45) 10^3/uL Baso # (Auto) 0.02 10^3/uL Creatine Kinase 209 (21-215) U/L Med Orders - Current: Current Medications Discontinued Medications Acetaminophen (Tylenol) 650 mg PO Q4H PRN PRN Reason: Pain (Mild 1-3)/fever Last Admin: 07/25/17 16:40 Dose: 650 mg Aspirin (Halfprin) 81 mg PO DAILY [facility] Last Admin: 07/29/17 07:37 Dose: 81 mg Calcium Carbonate/Glycine (Tums) 500 mg PO DAILY [facility] Last Admin: 07/29/17 07:37 Dose: 500 mg Ceftriaxone Sodium (Rocephin) 1 gm IVPUSH Q24H [facility] Last Admin: 07/28/17 19:33 Dose: 1 gm Denosumab (Prolia) 60 mg SUBCUT Q180D [facility] Last Admin: 07/24/17 20:23 Dose: Not Given Enoxaparin Sodium (Lovenox) 30 mg SUBCUT Q24H [facility] Last Admin: 07/28/17 19:34 Dose: 30 mg Hydrochlorothiazide (Hydrochlorothiazide) 12.5 mg PO DAILY [facility] Last Admin: 07/29/17 07:37 Dose: 12.5 mg Sodium Chloride (Normal Saline) 1,000 mls @ 50 mls/hr IV ASDIRECTED [facility] Last Admin: 07/25/17 11:37 Dose: 50 mls/hr Lisinopril (Prinivil) 20 mg PO DAILY [facility] Last Admin: 07/29/17 07:37 Dose: 20 mg Metoprolol Succinate (Toprol Xl) 25 mg PO DAILY [facility] Last Admin: 07/29/17 07:37 Dose: 25 mg Potassium Chloride (Klor-Con 10) 10 meq PO DAILY [facility] Last Admin: 07/29/17 07:37 Dose: 10 meq Simvastatin (Zocor) 80 mg PO DAILY [facility] Last Admin: 07/29/17 07:37 Dose: 80 mg Tuberculin PPD (Aplisol) 5 unit IDERM ONETIME ONE Stop: 07/27/17 08:01 Last Admin: 07/27/17 08:20 Dose: 5 unit - Exam General: Reports: Alert, Oriented, Cooperative HEENT: Reports: Mucous Membr. Moist/[place] Neck: Reports: Supple Lungs: Reports: Clear to Auscultation, Normal Respiratory Effort Cardiovascular: Reports: Regular Rate, Regular Rhythm GI/Abdominal Exam: Normal Bowel Sounds, Soft, Non-Tender Extremities: No Pedal Edema Wound/Incisions: Reports: Healing Well, Erythema Improving Neurological: Reports: No New Focal Deficit *Q Meaningful Use (DIS) - VTE *Q VTE Criteria *Q: - Stroke *Q Stroke Criteria *Q: - AMI *Q AMI Criteria *Q:
== END 2017-07-29 10:10 | DRG 312 ==
LOC: CC.ED 16:10 → CC.MS 17:15 → UNDOADMIN 17:15 → CC.MS 18:06
PROVIDERS: ADMIT Physician Assistant Medical; ATTEND Family Medicine
DX: R55 Syncope and collapse (principal); R41.0 Disorientation, unspecified; R15.9 Full incontinence of feces; R32 Unspecified urinary incontinence; I10 Essential (primary) hypertension; M19.90 Unspecified osteoarthritis, unspecified site; E78.00 Pure hypercholesterolemia, unspecified; M81.0 Age-related osteoporosis without current pathological fracture; F03.90 Unspecified dementia, unspecified severity, without behavioral disturbance, psychotic disturbance, mood disturbance, and anxiety; Z79.82 Long term (current) use of aspirin; Z79.899 Other long term (current) drug therapy; W19.XXXA Unspecified fall, initial encounter
CPT/HCPCS: 36415; 70450; 80048; 81001; 82550; 84484; 85025; 86140; 86580; 87086; 93005; 93306; 93880; 97110-GP; 97161-GP; 99285; A9270-GY; J0696; J1650; J7030